=== PATIENT | female | born 1975 | race Caucasian/White ===

== ENCOUNTER 2020-03-12 20:04 | Emergency (ER) | payer OTHER ==
[~2020-03-12 20:04] MED LIST: FLEXERIL5 MG PO; MOTRIN600 MG PO
[2020-03-12 20:24] LABS: BASOPHIL 0.6 % (0-2); EOSINOPHIL 1.1 % (0-5); HCT 47.5 % (37.0-47.0); HGB 16.5 g/dl (12.5-16.0); LYMPHOCYTE 44.3 % (15-48); MCH 32.3 pg (25.0-31.0); MCHC 34.7 g/dL (32.0-36.0); MONOCYTE 7.6 % (0-12); MPV 9.5 fL (6.0-9.5); NRBC 0; PLT 404 K/uL (150-400); RBC 5.11 M/uL (4.20-5.40); RDW 12.1 % (11.5-14.0); WBC 14.4 K/uL (4.0-10.5)
[2020-03-12 20:37] LABS: ALBUMIN 4.3 g/dL (3.4-5.0); BILIRUBIN - TOTAL 0.4 mg/dL (0.2-1.0); BUN/CREAT RATIO (CALC) 8.6 RATIO; CREATININE 0.7 mg/dL (0.51-0.95); GLOBULIN (CALCULATION) 4.6 g/dL; MAGNESIUM 2.3 mg/dL (1.8-2.4); POTASSIUM 4.1 mmol/L (3.5-5.1); TOTAL PROTEIN 8.9 g/dL (6.4-8.2)
[2020-03-12 20:45] LABS: CKMB 0.6 ng/mL (0.0-3.6); PRO-BNP 48 pg/mL (<125)
[2020-03-12] MEDS ORDERED: TOPROL XL 25MG25 MG PO (21:15)
== END 2020-03-12 21:34 | disposition home or self-care (01) ==
LOC: FER 20:04
PROVIDERS: Emergency Medicine
DX: I47.1 Supraventricular tachycardia (principal); R07.89 Other chest pain; F17.200 Nicotine dependence, unspecified, uncomplicated; Z88.0 Allergy status to penicillin; Z88.6 Allergy status to analgesic agent; Z91.013 Allergy to seafood
CPT/HCPCS: 36415; 71045; 80053; 82553; 83735; 83880; 84484; 85025; 85379; 93005